=== PATIENT | male | born 1975 | race Caucasian/White ===

== ENCOUNTER 2023-08-15 10:04 | Inpatient (IN) | payer OTHER ==
[2023-08-15 10:27] VITALS: BMI 22.1
[2023-08-15] MEDS ORDERED: guaiFENesin 600 MG TABLET.ER (FP) PO PRN ×2 (10:40→18:55)
[2023-08-15] MEDS ORDERED: NALOXONE HCL 0.4 MG/ML VIAL IM PRN (10:40)
[2023-08-15] MEDS ORDERED: NALOXONE HCL (KLOXXADO) 8 MG SPRAY NS PRN (10:40)
[2023-08-15] MEDS ORDERED: IBUPROFEN 400 MG TABLET (FP) PO PRN (10:40)
[2023-08-15] MEDS ORDERED: ACETAMINOPHEN 325 MG TABLET (FP) PO PRN (10:40)
[2023-08-15] MEDS ORDERED: BENZONATATE 200 MG CAPSULE PO PRN (10:40)
[2023-08-15] MEDS ORDERED: METHOCARBAMOL 500 MG TABLET PO PRN (10:40)
[2023-08-15] MEDS ORDERED: hydrOXYzine PAMOATE 25 MG CAPSULE (FP) PO PRN (10:40)
[2023-08-15] MEDS ORDERED: ONDANSETRON *ODT* 4 MG TABLET SL PRN (10:40)
[2023-08-15] MEDS ORDERED: BISMUTH SUBSALICYLATE 524 MG/30 ML PO PRN (10:40)
[2023-08-15] MEDS ORDERED: LOPERAMIDE HCL 2 MG CAPSULE PO PRN (10:40)
[2023-08-15] MEDS ORDERED: BENZOCAINE/MENTHOL (CHLORASEPTIC ) LOZENGE MM PRN (10:40)
[2023-08-15] MEDS ORDERED: cloNIDine HCL 0.1 MG TABLET PO PRN (10:40)
[2023-08-15] MEDS ORDERED: MAG HYDROX/AL HYDROX/SIMETH 30 ML UNIT-DOSE CUP PO PRN (10:40)
[2023-08-15] MEDS ORDERED: DICYCLOMINE HCL 10 MG CAPSULE PO PRN (10:40)
[2023-08-15] MEDS ORDERED: POLYETHYLENE GLYCOL (HEALTHYLAX) 3350 17 GM PACKET PO PRN (10:40)
[2023-08-15] MEDS ORDERED: IBUPROFEN 600 MG TABLET (FP) PO PRN (10:40)
[2023-08-15] MEDS ORDERED: MAGNESIUM HYDROX 2400MG/30ML ORAL SUSPENSION 30 ML CUP PO PRN (10:40)
[2023-08-15] MEDS ORDERED: methaDONE HCL 10 MG TABLET (FOR DETOX USE ONLY) ONE (11:00)
[2023-08-15] MEDS ORDERED: ONDANSETRON *ODT* 4 MG TABLET ONE (11:00)
[2023-08-15] MEDS ORDERED: methaDONE HCL 10 MG TABLET (FOR DETOX USE ONLY) PO ONE (11:00)
[2023-08-15] MEDS ORDERED: NICOTINE 7 MG/24 HOURS TOPICAL PATCH TD ONE (11:01)
[2023-08-15] MEDS: NICOTINE 7 MG/24 HOURS TOPICAL PATCH TD SCH (11:30)
[2023-08-15] MEDS: ALBUTEROL SO4 HFA INHALER IH PRN (17:25)
[2023-08-15] MEDS: predniSONE 20 MG TABLET (UD) PO SCH (17:54)
[2023-08-15] MEDS: ALBUTEROL SO4 2.5/IPRATROPIUM 0.5 INH SOL 3 ML VIAL.NEB. NEB SCH ×2 (17:54→22:38)
[2023-08-15] MEDS: AMOX TR/POT CLAV 875MG/125MG TABLETS (FP) PO SCH (19:02)
[2023-08-15] MEDS ORDERED: MELATONIN 5 MG TABLETS PO SCH (22:00)
[2023-08-15] MEDS ORDERED: THIAMINE HCL 100 MG TABLET (FP) PO SCH (22:00)
[2023-08-16] MEDS: ALBUTEROL SO4 HFA INHALER IH PRN (03:09)
[2023-08-16] MEDS: ALBUTEROL SO4 2.5/IPRATROPIUM 0.5 INH SOL 3 ML VIAL.NEB. NEB SCH ×2 (06:30→12:33)
[2023-08-16] MEDS: AMOX TR/POT CLAV 875MG/125MG TABLETS (FP) PO SCH ×2 (07:05→17:24)
[2023-08-16 08:28] LABS: HEMOGLOBIN 11.3 GM/dL (11.7-16.9); MCHC 31.3 g/dl (32.0-35.9); MEAN CELL VOLUME 83.1 fl (80-96); MEAN PLT VOLUME 8.2 fl (7.5-11.1); PLATELET COUNT 428 10^3/uL (134-434); RBC 4.33 M/mm3 (4.00-5.60); RDW 16.4 % (11.9-15.9); WHITE BLOOD COUNT 12.4 K/mm3 (4.0-10.0)
[2023-08-16 08:58] VITALS: RESP 18
[2023-08-16 09:18] LABS: POTASSIUM 4.7 mmol/L (3.5-5.1)
[2023-08-16 09:41] LABS: BLOOD UREA NITROGEN 24.7 mg/dL (7-18)
[2023-08-16 09:42] LABS: ALBUMIN 1.4 g/dl (3.4-5.0); CALCIUM 8.4 mg/dL (8.5-10.1)
[2023-08-16 09:45] LABS: CREATININE 1.4 mg/dL (0.55-1.3)
[2023-08-16 09:47] LABS: BILIRUBIN,TOTAL 0.2 mg/dL (0.2-1)
[2023-08-16 09:48] LABS: TOT PROT 5.1 g/dl (6.4-8.2)
[2023-08-16] MEDS: predniSONE 20 MG TABLET (UD) PO SCH (09:58)
[2023-08-16] MEDS: NICOTINE 7 MG/24 HOURS TOPICAL PATCH TD SCH (09:59)
[2023-08-16] MEDS ORDERED: PRENATAL VITAMINS W/ FOLIC ACID TABLET (FP) PO SCH (10:00)
[2023-08-16 10:03] VITALS: BP 151/91; PULSE 62; TEMP 97.5
[2023-08-16] MEDS ORDERED: FLU VACCINE (FLULAVAL) PF 60 MCG/0.5 ML SYRINGE 2023-2024 IM ONE (12:00)
[2023-08-16] MEDS ORDERED: PNEUMOC 20-VAL CONJ-DIP CRM/PF 0.5 ML SYRINGE IM ONE (12:00)
[2023-08-16] MEDS ORDERED: cloNIDine HCL 0.1 MG TABLET PO PRN (17:28)
[2023-08-16] MEDS ORDERED: ALBUTEROL SO4 0.083% IH SOL 2.5 MG/3 ML VIAL.NEB. NEB SCH (17:30)
[2023-08-17] MEDS ORDERED: methaDONE HCL 10 MG TABLET (FOR DETOX USE ONLY) PO ONE ×2 (10:00)
[2023-08-19] MEDS ORDERED: methaDONE HCL 10 MG TABLET (FOR DETOX USE ONLY) PO ONE ×2 (10:00)
== END 2023-08-16 20:35 | disposition short-term general hospital (02) | DRG 773 ==
LOC: YASAS 10:04 → Y3N 11:12
PROVIDERS: ADMIT Allergy & Immunology; ATTEND Psychiatry & Neurology Pain Medicine
PROC: HZ2ZZZZ Detoxification Services for Substance Abuse Treatment (ICD-10-PCS; principal; 2023-08-15)
DX: F11.23 Opioid dependence with withdrawal (principal); F14.20 Cocaine dependence, uncomplicated; F16.20 Hallucinogen dependence, uncomplicated; F12.20 Cannabis dependence, uncomplicated; F17.210 Nicotine dependence, cigarettes, uncomplicated; J45.901 Unspecified asthma with (acute) exacerbation; Z59.02 Unsheltered homelessness
CPT/HCPCS: 36415; 71046-TC-FY; 80053; 85027; 86140; 86780; 87635; 93005; 93010; 94640

== ENCOUNTER 2023-08-16 10:48 | Inpatient (IN) | payer OTHER ==
[2023-08-16 11:07] VITALS: BMI 22.1
[2023-08-16] MEDS ORDERED: ONDANSETRON 4 MG/2 ML VIAL IVPUSH ONE (11:11)
[2023-08-16] MEDS ORDERED: ALBUTEROL SO4 2.5/IPRATROPIUM 0.5 INH SOL 3 ML VIAL.NEB. NEB ONE ×2 (11:11→11:22)
[2023-08-16] MEDS ORDERED: SODIUM CHLORIDE 0.9% 1000 ML INFUS.BAG IV ONE (11:11)
[2023-08-16] MEDS ORDERED: DEXAMETHASONE SOD PHOSPHATE 10 MG/1 ML VIAL IVPUSH ONE (11:12)
[2023-08-16] MEDS ORDERED: DEXAMETHASONE SOD PHOSPHATE 10 MG/1 ML VIAL ONE (11:22)
[2023-08-16] MEDS ORDERED: ONDANSETRON 4 MG/2 ML VIAL ONE (11:22)
[2023-08-16] MEDS ORDERED: cloNIDine HCL 0.1 MG TABLET PO PRN (17:31)
[2023-08-16] MEDS ORDERED: REMDESIVIR 200 MG in SODIUM CHLORIDE 250 ML IVPB ONE ×2 (17:51→18:15)
[2023-08-16] MEDS ORDERED: PROCHLORPERAZINE INJECTION 10 MG/2 ML VIAL IVPB PRN (17:52)
[2023-08-16] MEDS ORDERED: SODIUM CHLORIDE 1,000 ML IV SCH (18:00)
[2023-08-16 18:41] LABS: EPI CELLS 6 /uL (0-25.1); HYALINE CASTS 0 /uL (0-3.1); PH,URINE 7.5 (5.0-8.0); URINE APPEARANCE CLEAR; URINE BACTERIA 4 /uL (0-1359); URINE BILIRUBIN NEGATIVE (NEGATIVE); URINE COLOR YELLOW; URINE GLUCOSE (UA) NEGATIVE (NEGATIVE); URINE KETONE NEGATIVE (NEGATIVE); URINE LEUK ESTERASE NEGATIVE (NEGATIVE); URINE NITRITE NEGATIVE (NEGATIVE); URINE PROTEIN 3+ (NEGATIVE); URINE RBC 8 /uL (0-23.9); URINE UROBILINOGEN 0.2 mg/dL (0.2-1.0); URINE WBC 4 /uL (0-25.8)
[2023-08-16] MEDS: ALBUTEROL SO4 2.5/IPRATROPIUM 0.5 INH SOL 3 ML VIAL.NEB. NEB SCH ×2 (21:45→23:45)
[2023-08-16] MEDS: hydrOXYzine PAMOATE 25 MG CAPSULE (FP) PO PRN (22:25)
[2023-08-17] MEDS: ALBUTEROL SO4 2.5/IPRATROPIUM 0.5 INH SOL 3 ML VIAL.NEB. NEB SCH ×6 (04:20→20:24)
[2023-08-17] MEDS: ACETAMINOPHEN 325 MG TABLET (FP) PO PRN ×2 (07:01→19:55)
[2023-08-17] MEDS ORDERED: ONDANSETRON 4 MG/2 ML VIAL IVPUSH ONE (08:41)
[2023-08-17] MEDS ORDERED: MAG HYDROX/AL HYDROX/SIMETH -MYLANTA- ORAL SUSPENSION PO ONE (08:57)
[2023-08-17] MEDS ORDERED: PANTOPRAZOLE SODIUM 40 MG VIAL IVPUSH ONE (09:00)
[2023-08-17] MEDS ORDERED: MAGNESIUM SULF 50% (8.12 MEQ/2 ML-1 GM VIAL) IVPB ONE (09:00)
[2023-08-17] MEDS: predniSONE 20 MG TABLET (UD) PO SCH (09:02)
[2023-08-17] MEDS: REMDESIVIR 100 MG in SODIUM CHLORIDE 250 ML IVPB SCH (09:03)
[2023-08-17] MEDS ORDERED: methaDONE HCL 10 MG TABLET PO ONE (10:00)
[2023-08-17 12:45] LABS: BASO % 0.2 % (0-2.0); HEMATOCRIT 39.5 % (35.4-49); HEMOGLOBIN 12.3 GM/dL (11.7-16.9); LYMPH % 11.7 % (8-40); MEAN CELL VOLUME 83.7 fl (80-96); MEAN PLT VOLUME 7.5 fl (7.5-11.1); MONO % 2.5 % (3.8-10.2); NEUT % 85.6 % (42.8-82.8); PLATELET COUNT 456 10^3/uL (134-434); RBC 4.72 M/mm3 (4.00-5.60); RDW 16.4 % (11.9-15.9); WHITE BLOOD COUNT 9.1 K/mm3 (4.0-10.0)
[2023-08-17 13:05] LABS: POTASSIUM 4.7 mmol/L (3.5-5.1)
[2023-08-17 13:06] LABS: ALBUMIN 1.5 g/dl (3.4-5.0); CALCIUM 8.5 mg/dL (8.5-10.1)
[2023-08-17 13:07] LABS: BLOOD UREA NITROGEN 18.9 mg/dL (7-18)
[2023-08-17 13:08] LABS: BILIRUBIN,DIRECT 0.1 mg/dL (0.0-0.2)
[2023-08-17 13:10] LABS: CREATININE 1.6 mg/dL (0.55-1.3); TOT PROT 5.3 g/dl (6.4-8.2)
[2023-08-17 13:11] LABS: BILIRUBIN,TOTAL 0.1 mg/dL (0.2-1)
[2023-08-18] MEDS: ALBUTEROL SO4 2.5/IPRATROPIUM 0.5 INH SOL 3 ML VIAL.NEB. NEB SCH ×7 (00:45→23:20)
[2023-08-18] MEDS: ACETAMINOPHEN 325 MG TABLET (FP) PO PRN ×2 (02:20→14:37)
[2023-08-18 08:33] LABS: BASO % 0.6 % (0-2.0); EOS % 0.4 % (0-4.5); HEMATOCRIT 36.1 % (35.4-49); HEMOGLOBIN 11.7 GM/dL (11.7-16.9); LYMPH % 38.8 % (8-40); MCH 26.9 pg (25.7-33.7); MCHC 32.5 g/dl (32.0-35.9); MEAN CELL VOLUME 82.8 fl (80-96); MEAN PLT VOLUME 7.6 fl (7.5-11.1); MONO % 9.7 % (3.8-10.2); NEUT % 50.5 % (42.8-82.8); PLATELET COUNT 416 10^3/uL (134-434); RBC 4.36 M/mm3 (4.00-5.60); RDW 16.1 % (11.9-15.9); WHITE BLOOD COUNT 8.1 K/mm3 (4.0-10.0)
[2023-08-18 08:35] VITALS: RESP 18
[2023-08-18 09:01] LABS: POTASSIUM 4.1 mmol/L (3.5-5.1)
[2023-08-18 09:02] LABS: CALCIUM 8.1 mg/dL (8.5-10.1)
[2023-08-18 09:03] LABS: BLOOD UREA NITROGEN 20.8 mg/dL (7-18)
[2023-08-18 09:06] LABS: CREATININE 1.6 mg/dL (0.55-1.3)
[2023-08-18] MEDS: ONDANSETRON 4 MG/2 ML VIAL IVPUSH PRN (09:31)
[2023-08-18] MEDS: PANTOPRAZOLE SODIUM 40 MG VIAL IVPUSH SCH (09:32)
[2023-08-18] MEDS: predniSONE 20 MG TABLET (UD) PO SCH (09:32)
[2023-08-18] MEDS: REMDESIVIR 100 MG in SODIUM CHLORIDE 250 ML IVPB SCH (09:32)
[2023-08-18] MEDS ORDERED: PANTOPRAZOLE SODIUM 40 MG VIAL IVPUSH SCH (10:00)
[2023-08-19] MEDS: ALBUTEROL SO4 2.5/IPRATROPIUM 0.5 INH SOL 3 ML VIAL.NEB. NEB SCH ×6 (04:30→20:17)
[2023-08-19] MEDS: ONDANSETRON 4 MG/2 ML VIAL IVPUSH PRN (08:07)
[2023-08-19] MEDS: PANTOPRAZOLE SODIUM 40 MG VIAL IVPUSH SCH (09:43)
[2023-08-19] MEDS: predniSONE 20 MG TABLET (UD) PO SCH (09:44)
[2023-08-19] MEDS: hydrOXYzine PAMOATE 25 MG CAPSULE (FP) PO PRN (09:44)
[2023-08-19 09:54] LABS: HEMATOCRIT 38.6 % (35.4-49); HEMOGLOBIN 12.6 GM/dL (11.7-16.9); MCH 26.9 pg (25.7-33.7); MCHC 32.6 g/dl (32.0-35.9); MEAN CELL VOLUME 82.3 fl (80-96); MEAN PLT VOLUME 7.4 fl (7.5-11.1); PLATELET COUNT 454 10^3/uL (134-434); RBC 4.69 M/mm3 (4.00-5.60); RDW 16.6 % (11.9-15.9); WHITE BLOOD COUNT 8.6 K/mm3 (4.0-10.0)
[2023-08-19] MEDS ORDERED: methaDONE HCL 10 MG TABLET PO ONE ×2 (10:00→14:53)
[2023-08-19 10:09] LABS: POTASSIUM 4.3 mmol/L (3.5-5.1)
[2023-08-19 10:13] LABS: CALCIUM 8.7 mg/dL (8.5-10.1)
[2023-08-19 10:14] LABS: ALBUMIN 1.6 g/dl (3.4-5.0); BLOOD UREA NITROGEN 29.7 mg/dL (7-18); MAGNESIUM 1.9 mg/dL (1.8-2.4)
[2023-08-19 10:17] LABS: CREATININE 1.7 mg/dL (0.55-1.3); PHOSPHOROUS 5.3 mg/dL (2.5-4.9)
[2023-08-19 10:18] LABS: BILIRUBIN,TOTAL 0.3 mg/dL (0.2-1)
[2023-08-19 10:19] LABS: TOT PROT 5.3 g/dl (6.4-8.2)
[2023-08-19] MEDS: ACETAMINOPHEN 325 MG TABLET (FP) PO PRN (10:56)
[2023-08-19 16:33] LABS: EPI CELLS 4 /uL (0-25.1); HYALINE CASTS 0 /uL (0-3.1); URINE APPEARANCE CLEAR; URINE BACTERIA 22 /uL (0-1359); URINE BILIRUBIN NEGATIVE (NEGATIVE); URINE COLOR YELLOW; URINE GLUCOSE (UA) NEGATIVE (NEGATIVE); URINE KETONE NEGATIVE (NEGATIVE); URINE LEUK ESTERASE NEGATIVE (NEGATIVE); URINE NITRITE NEGATIVE (NEGATIVE); URINE PROTEIN 3+ (NEGATIVE); URINE RBC 19 /uL (0-23.9); URINE UROBILINOGEN 0.2 mg/dL (0.2-1.0); URINE WBC 5 /uL (0-25.8)
[2023-08-20] MEDS: ACETAMINOPHEN 325 MG TABLET (FP) PO PRN (00:14)
[2023-08-20] MEDS: ALBUTEROL SO4 2.5/IPRATROPIUM 0.5 INH SOL 3 ML VIAL.NEB. NEB SCH ×6 (04:52→20:17)
[2023-08-20 09:40] LABS: POTASSIUM 3.9 mmol/L (3.5-5.1)
[2023-08-20 09:43] LABS: CALCIUM 8.4 mg/dL (8.5-10.1)
[2023-08-20 09:45] LABS: BLOOD UREA NITROGEN 33.4 mg/dL (7-18)
[2023-08-20 09:48] LABS: CREATININE 1.8 mg/dL (0.55-1.3)
[2023-08-20 09:58] LABS: BASO % 0.3 % (0-2.0); HEMATOCRIT 41.5 % (35.4-49); HEMOGLOBIN 13.3 GM/dL (11.7-16.9); LYMPH % 41.2 % (8-40); MCH 26.2 pg (25.7-33.7); MEAN CELL VOLUME 81.9 fl (80-96); MEAN PLT VOLUME 7.7 fl (7.5-11.1); MONO % 6.1 % (3.8-10.2); NEUT % 51.4 % (42.8-82.8); PLATELET COUNT 489 10^3/uL (134-434); RBC 5.06 M/mm3 (4.00-5.60); RDW 16.1 % (11.9-15.9); WHITE BLOOD COUNT 10.1 K/mm3 (4.0-10.0)
[2023-08-20] MEDS: predniSONE 20 MG TABLET (UD) PO SCH (11:31)
[2023-08-20] MEDS: PANTOPRAZOLE SODIUM 40 MG VIAL IVPUSH SCH (11:32)
[2023-08-20] MEDS ORDERED: REMDESIVIR 100 MG in SODIUM CHLORIDE 250 ML IVPB ONE (12:00)
[2023-08-20] MEDS ORDERED: methaDONE HCL 10 MG TABLET PO ONE (12:50)
[2023-08-20] MEDS: SODIUM CHLORIDE 1,000 ML IV SCH (13:47)
[2023-08-21] MEDS: ALBUTEROL SO4 2.5/IPRATROPIUM 0.5 INH SOL 3 ML VIAL.NEB. NEB SCH ×5 (00:17→16:06)
[2023-08-21 09:39] LABS: HEMATOCRIT 37.4 % (35.4-49); HEMOGLOBIN 12.5 GM/dL (11.7-16.9); MCH 26.9 pg (25.7-33.7); MCHC 33.4 g/dl (32.0-35.9); MEAN CELL VOLUME 80.5 fl (80-96); MEAN PLT VOLUME 7.5 fl (7.5-11.1); PLATELET COUNT 481 10^3/uL (134-434); RBC 4.64 M/mm3 (4.00-5.60); RDW 16.3 % (11.9-15.9); WHITE BLOOD COUNT 10.9 K/mm3 (4.0-10.0)
[2023-08-21] MEDS: predniSONE 20 MG TABLET (UD) PO SCH (09:43)
[2023-08-21] MEDS ORDERED: PANTOPRAZOLE 40 MG TABLET PO SCH (10:00)
[2023-08-21 10:05] LABS: POTASSIUM 3.8 mmol/L (3.5-5.1)
[2023-08-21 10:56] LABS: CALCIUM 8.4 mg/dL (8.5-10.1)
[2023-08-21 10:57] LABS: BLOOD UREA NITROGEN 31.4 mg/dL (7-18)
[2023-08-21 10:58] LABS: ALBUMIN 1.6 g/dl (3.4-5.0)
[2023-08-21 11:00] LABS: CREATININE 1.6 mg/dL (0.55-1.3)
[2023-08-21 11:01] LABS: BILIRUBIN,TOTAL 0.3 mg/dL (0.2-1)
[2023-08-21] MEDS ORDERED: REMDESIVIR 100 MG in SODIUM CHLORIDE 250 ML IVPB ONE (12:00)
[2023-08-21] MEDS ORDERED: methaDONE HCL 10 MG TABLET PO ONE ×2 (13:00→15:30)
[2023-08-21 13:51] VITALS: BP 132/79; PULSE 94; TEMP 98.1
[2023-08-21] MEDS: SODIUM CHLORIDE 1,000 ML IV SCH (15:28)
[2023-08-21] MEDS ORDERED: ALBUTEROL SO4 HFA INHALER IH PRN (15:38)
== END 2023-08-21 16:30 | disposition other institution (70) | DRG 137 ==
LOC: JER 10:48 → JERBED 15:40 → J6S 19:13 → OBSVTOIN 08-19 13:50 → J6S 08-20 19:28
PROVIDERS: ADMIT Internal Medicine; ATTEND Internal Medicine
PROC: XW033E5 Introduction of Remdesivir Anti-infective into Peripheral Vein, Percutaneous Approach, New Technology Group 5 (ICD-10-PCS; principal; 2023-08-16)
DX: U07.1 COVID-19 (principal); J45.901 Unspecified asthma with (acute) exacerbation; N17.9 Acute kidney failure, unspecified; F14.10 Cocaine abuse, uncomplicated; F17.210 Nicotine dependence, cigarettes, uncomplicated; F11.23 Opioid dependence with withdrawal; I11.0 Hypertensive heart disease with heart failure; R11.2 Nausea with vomiting, unspecified; E83.39 Other disorders of phosphorus metabolism; E86.0 Dehydration
CPT/HCPCS: 0241U-QW; 36415; 71046-TC-FY; 76775-TC; 80048; 80053; 80076; 81003; 82570; 83735; 84100; 84300; 85025; 85027; 87635; 94640; 94761; 97116-GP; 97162-GP; 99285-25; G0378; J0248; J1100

== ENCOUNTER 2023-11-06 11:17 | Inpatient (IN) | payer OTHER ==
[2023-11-06 12:45] LABS: INR 0.93 (0.83-1.09); PROTHROMBIN TIME (PATIENT) 10.8 SEC (9.7-13.0)
[2023-11-06 12:47] LABS: HEMATOCRIT 41.7 % (35.4-49); HEMOGLOBIN 13.2 GM/dL (11.7-16.9); MCH 25.8 pg (25.7-33.7); MCHC 31.6 g/dl (32.0-35.9); MEAN CELL VOLUME 81.5 fl (80-96); MEAN PLT VOLUME 8.9 fl (7.5-11.1); PLATELET COUNT 447 10^3/uL (134-434); RBC 5.11 M/mm3 (4.00-5.60); RDW 18.7 % (11.9-15.9)
[2023-11-06 12:50] LABS: WHITE BLOOD COUNT 10.3 K/mm3 (4.0-10.0)
[2023-11-06] MEDS ORDERED: amLODIPine BESYLATE 10 MG TABLET (FP) ONE (13:15)
[2023-11-06] MEDS: amLODIPine BESYLATE 10 MG TABLET (FP) PO ONE (13:16)
[2023-11-06 13:25] LABS: POTASSIUM 4.3 mmol/L (3.5-5.1)
[2023-11-06 13:26] LABS: CALCIUM 8.2 mg/dL (8.5-10.1)
[2023-11-06 13:27] LABS: ALBUMIN 1.1 g/dl (3.4-5.0); BLOOD UREA NITROGEN 16.7 mg/dL (7-18)
[2023-11-06 13:30] LABS: CREATININE 1.8 mg/dL (0.55-1.3)
[2023-11-06 13:32] LABS: BILIRUBIN,TOTAL 0.2 mg/dL (0.2-1); TOT PROT 5.5 g/dl (6.4-8.2)
[2023-11-06] MEDS ORDERED: METOCLOPRAMIDE HCL INJECTION 10 MG/2 ML VIAL ONE (13:32)
[2023-11-06] MEDS ORDERED: OSELTAMIVIR PHOSPHATE 75 MG CAPSULE ONE (13:32)
[2023-11-06] MEDS: OSELTAMIVIR PHOSPHATE 75 MG CAPSULE PO ONE (13:34)
[2023-11-06] MEDS: METOCLOPRAMIDE HCL INJECTION 10 MG/2 ML VIAL IVPUSH ONE (13:34)
[2023-11-06 13:37] LABS: ANISOCYTOSIS 0; MACROCYTOSIS 0
[2023-11-06 13:57] LABS: EPI CELLS >36 /uL (0-25.1); HYALINE CASTS 7 /uL (0-3.1); PH,URINE 6.5 (5.0-8.0); URINE APPEARANCE CLEAR; URINE BACTERIA 9 /uL (0-1359); URINE BILIRUBIN NEGATIVE (NEGATIVE); URINE COLOR YELLOW; URINE GLUCOSE (UA) 2+ (NEGATIVE); URINE KETONE NEGATIVE (NEGATIVE); URINE LEUK ESTERASE NEGATIVE (NEGATIVE); URINE NITRITE NEGATIVE (NEGATIVE); URINE PROTEIN 4+ (NEGATIVE); URINE UROBILINOGEN 0.2 mg/dL (0.2-1.0); URINE WBC 30 /uL (0-25.8)
[2023-11-06 15:00] LABS: URINE RBC 75.5 /uL (0-23.9)
[2023-11-06] MEDS ORDERED: ALBUTEROL SO4 2.5/IPRATROPIUM 0.5 INH SOL 3 ML VIAL.NEB. NEB PRN (15:21)
[2023-11-06] MEDS ORDERED: hydrALAZINE HCL 20 MG/ML VIAL ONE (15:38)
[2023-11-06] MEDS: hydrALAZINE HCL 20 MG/ML VIAL IVPUSH ONE (15:42)
[2023-11-06 15:54] LABS: VENOUS BASE EXCESS 4.5 mmol/L (-2-2); VENOUS O2 SATURATION 41.5 % (70-80); VENOUS PCO2 45.9 mmHg (38-52); VENOUS PH 7.429 (7.310-7.410)
[2023-11-06] MEDS: SODIUM CHLORIDE 0.9% 500 ML INFUS.BAG IV ONE (15:57)
[2023-11-06] MEDS: SODIUM CHLORIDE 1,000 ML IV SCH (15:57)
[2023-11-06] MEDS ORDERED: TRIMETHOBENZAMIDE HCL 200MG/2ML INJ IM ONE (16:13)
[2023-11-06] MEDS: TRIMETHOBENZAMIDE HCL 200MG/2ML INJ IM ONE (16:19)
[2023-11-06] MEDS: hydrALAZINE HCL 10 MG TABLET PO SCH (23:06)
[2023-11-07] VITALS: BMI 20.9
[2023-11-07] MEDS: amLODIPine BESYLATE 10 MG TABLET (FP) PO SCH (09:51)
[2023-11-07] MEDS: OSELTAMIVIR PHOSPHATE 30 MG CAPSULE PO SCH (09:51)
[2023-11-07 10:31] LABS: BASO % 0.3 % (0-2.0); HEMATOCRIT 37.6 % (35.4-49); HEMOGLOBIN 11.9 GM/dL (11.7-16.9); LYMPH % 24.2 % (8-40); MCH 25.6 pg (25.7-33.7); MCHC 31.7 g/dl (32.0-35.9); MEAN CELL VOLUME 80.8 fl (80-96); MONO % 9.4 % (3.8-10.2); NEUT % 66.1 % (42.8-82.8); PLATELET COUNT 471 10^3/uL (134-434); RBC 4.65 M/mm3 (4.00-5.60); RDW 18.7 % (11.9-15.9); WHITE BLOOD COUNT 7.4 K/mm3 (4.0-10.0)
[2023-11-07 10:39] LABS: POTASSIUM 3.9 mmol/L (3.5-5.1)
[2023-11-07 10:43] LABS: ALBUMIN 1.2 g/dl (3.4-5.0); BLOOD UREA NITROGEN 15.6 mg/dL (7-18); CALCIUM 7.5 mg/dL (8.5-10.1); MAGNESIUM 2.2 mg/dL (1.8-2.4)
[2023-11-07 10:46] LABS: CREATININE 1.8 mg/dL (0.55-1.3)
[2023-11-07 10:48] LABS: BILIRUBIN,TOTAL 0.2 mg/dL (0.2-1)
[2023-11-07] MEDS ORDERED: ALBUTEROL SO4 HFA INHALER IH PRN (10:57)
[2023-11-07] MEDS: methaDONE HCL 10 MG TABLET PO ONE ×3 (11:22→14:07)
[2023-11-07] MEDS: ACETAMINOPHEN 325 MG TABLET (FP) PO PRN (12:07)
[2023-11-07] MEDS: LACTATED RINGERS SOLUTION 1,000 ML/1,000 ML INFUS.BAG IV SCH (13:20)
[2023-11-07] MEDS: TRIMETHOBENZAMIDE HCL 200MG/2ML INJ IM PRN (13:21)
[2023-11-07] MEDS: cloNIDine HCL 0.1 MG TABLET PO PRN (13:21)
[2023-11-07] MEDS: MAG HYDROX/AL HYDROX/SIMETH 30 ML UNIT-DOSE CUP PO PRN (16:51)
[2023-11-07] MEDS: PANTOPRAZOLE SODIUM 40 MG VIAL IVPUSH SCH (16:51)
[2023-11-08] MEDS: hydrALAZINE HCL 10 MG TABLET PO SCH (08:40)
[2023-11-08] MEDS: NICOTINE 14 MG/24 HOURS TOPICAL PATCH TD SCH (09:14)
[2023-11-08] MEDS: LACTATED RINGERS SOLUTION 1,000 ML/1,000 ML INFUS.BAG IV SCH (10:58)
[2023-11-08 11:35] LABS: BASO % 0.6 % (0-2.0); EOS % 0.2 % (0-4.5); HEMATOCRIT 35.5 % (35.4-49); HEMOGLOBIN 11.6 GM/dL (11.7-16.9); LYMPH % 37.3 % (8-40); MCH 26.3 pg (25.7-33.7); MCHC 32.8 g/dl (32.0-35.9); MEAN CELL VOLUME 80.3 fl (80-96); MEAN PLT VOLUME 7.8 fl (7.5-11.1); MONO % 9.7 % (3.8-10.2); NEUT % 52.2 % (42.8-82.8); PLATELET COUNT 456 10^3/uL (134-434); RBC 4.42 M/mm3 (4.00-5.60); RDW 18.6 % (11.9-15.9); WHITE BLOOD COUNT 7.2 K/mm3 (4.0-10.0)
[2023-11-08 12:12] LABS: POTASSIUM 4.1 mmol/L (3.5-5.1)
[2023-11-08 12:16] LABS: CALCIUM 7.7 mg/dL (8.5-10.1)
[2023-11-08 12:17] LABS: ALBUMIN 1.3 g/dl (3.4-5.0); BLOOD UREA NITROGEN 17.6 mg/dL (7-18)
[2023-11-08 12:20] LABS: CREATININE 1.9 mg/dL (0.55-1.3)
[2023-11-08 12:21] LABS: BILIRUBIN,TOTAL 0.3 mg/dL (0.2-1)
[2023-11-08 12:22] LABS: TOT PROT 4.7 g/dl (6.4-8.2)
[2023-11-08] MEDS: hydrALAZINE HCL 25 MG TABLET (FP) PO SCH (14:32)
[2023-11-08 17:41] LABS: HIV INTERPRETATION NEGATIVE (NEGATIVE)
[2023-11-09] MEDS: LACTATED RINGERS SOLUTION 1000 ML INFUS.BAG IV ONE (10:09)
[2023-11-09] MEDS: methaDONE HCL 10 MG TABLET PO ONE ×2 (10:12→14:44)
[2023-11-09 11:24] LABS: BASO % 0.4 % (0-2.0); EOS % 0.6 % (0-4.5); HEMATOCRIT 38.7 % (35.4-49); HEMOGLOBIN 12.3 GM/dL (11.7-16.9); LYMPH % 33.5 % (8-40); MCH 25.9 pg (25.7-33.7); MCHC 31.9 g/dl (32.0-35.9); MEAN CELL VOLUME 81.3 fl (80-96); MEAN PLT VOLUME 7.9 fl (7.5-11.1); MONO % 9.1 % (3.8-10.2); NEUT % 56.4 % (42.8-82.8); PLATELET COUNT 478 10^3/uL (134-434); RBC 4.76 M/mm3 (4.00-5.60); RDW 18.8 % (11.9-15.9); WHITE BLOOD COUNT 7.6 K/mm3 (4.0-10.0)
[2023-11-09 11:40] LABS: POTASSIUM 4.2 mmol/L (3.5-5.1)
[2023-11-09 11:42] LABS: CALCIUM 7.8 mg/dL (8.5-10.1)
[2023-11-09 11:43] LABS: BLOOD UREA NITROGEN 21.5 mg/dL (7-18)
[2023-11-09 11:46] LABS: CREATININE 1.9 mg/dL (0.55-1.3)
[2023-11-09 11:47] LABS: TOT PROT 4.9 g/dl (6.4-8.2)
[2023-11-09 11:48] LABS: ALBUMIN 1.3 g/dl (3.4-5.0); BILIRUBIN,TOTAL 0.2 mg/dL (0.2-1)
[2023-11-09 17:35] LABS: EPI CELLS 8 /uL (0-25.1); HYALINE CASTS 0 /uL (0-3.1); PH,URINE 7.5 (5.0-8.0); URINE APPEARANCE CLEAR; URINE BACTERIA 139 /uL (0-1359); URINE BILIRUBIN NEGATIVE (NEGATIVE); URINE COLOR YELLOW; URINE GLUCOSE (UA) TRACE (NEGATIVE); URINE KETONE NEGATIVE (NEGATIVE); URINE LEUK ESTERASE NEGATIVE (NEGATIVE); URINE NITRITE NEGATIVE (NEGATIVE); URINE PROTEIN 3+ (NEGATIVE); URINE RBC 23 /uL (0-23.9); URINE UROBILINOGEN 0.2 mg/dL (0.2-1.0); URINE WBC 4 /uL (0-25.8)
[2023-11-10 08:47] LABS: POTASSIUM 4.3 mmol/L (3.5-5.1)
[2023-11-10 08:50] LABS: CALCIUM 7.4 mg/dL (8.5-10.1)
[2023-11-10 08:51] LABS: ALBUMIN 1.2 g/dl (3.4-5.0)
[2023-11-10 08:53] LABS: BLOOD UREA NITROGEN 19.6 mg/dL (7-18)
[2023-11-10 08:54] LABS: CREATININE 1.9 mg/dL (0.55-1.3)
[2023-11-10 08:55] LABS: TOT PROT 4.3 g/dl (6.4-8.2)
[2023-11-10 08:56] LABS: BILIRUBIN,TOTAL 0.2 mg/dL (0.2-1)
[2023-11-10] MEDS: guaiFENesin 200 MG/10 ML 10 ML UNIT-DOSE CUPS PO PRN (10:07)
[2023-11-10] MEDS: methaDONE HCL 10 MG TABLET PO ONE (13:43)
[2023-11-11 09:28] LABS: BASO % 0.5 % (0-2.0); EOS % 1.4 % (0-4.5); HEMATOCRIT 33.5 % (35.4-49); LYMPH % 30.1 % (8-40); MCH 26.4 pg (25.7-33.7); MCHC 32.7 g/dl (32.0-35.9); MEAN CELL VOLUME 80.7 fl (80-96); MEAN PLT VOLUME 7.6 fl (7.5-11.1); MONO % 8.3 % (3.8-10.2); NEUT % 59.7 % (42.8-82.8); PLATELET COUNT 505 10^3/uL (134-434); RBC 4.15 M/mm3 (4.00-5.60); RDW 19.1 % (11.9-15.9); WHITE BLOOD COUNT 8.7 K/mm3 (4.0-10.0)
[2023-11-11 09:54] LABS: POTASSIUM 4.9 mmol/L (3.5-5.1)
[2023-11-11 09:56] LABS: CALCIUM 7.8 mg/dL (8.5-10.1)
[2023-11-11 09:59] LABS: CREATININE 1.9 mg/dL (0.55-1.3)
[2023-11-11] MEDS: methaDONE HCL 10 MG TABLET PO ONE (15:34)
[2023-11-12 11:39] VITALS: RESP 20
[2023-11-12 15:44] VITALS: BP 136/89; PULSE 94; TEMP 99.1
== END 2023-11-12 16:05 | disposition home or self-care (01) | DRG 199 ==
LOC: JER 11:17 → JERBED 14:28 → J5S 20:25
PROVIDERS: ADMIT Internal Medicine; ATTEND Internal Medicine
DX: I16.0 Hypertensive urgency (principal); F14.20 Cocaine dependence, uncomplicated; F11.23 Opioid dependence with withdrawal; F12.20 Cannabis dependence, uncomplicated; J10.1 Influenza due to other identified influenza virus with other respiratory manifestations; N18.9 Chronic kidney disease, unspecified; Z59.00 Homelessness unspecified; E86.0 Dehydration
CPT/HCPCS: 0241U-QW; 36415; 71045-TC-FY; 76775-TC; 80048; 80053; 80305; 81003; 82570; 82803; 83036; 83605; 83735; 84155; 84156; 84165; 84443; 84484; 85025; 85610; 85730; 86038; 86160; 86704; 86803; 86850; 86900; 86901; 87040; 87086; 87389; 87522; 93005; 93010; 97116-GP; 97161-GP; 99285-25